=== PATIENT | female | born 1945 | race Caucasian/White ===

== ENCOUNTER 2024-04-17 17:26 | Observation (INO) | payer OTHER, MEDICAID ==
[~2024-04-17] VITALS: Ht 165.1 cm; Wt 59.4 kg
[2024-04-17 17:41] VITALS: BP_SYST 116; PULSE 69; RESP 19; TEMP 98.7; O2SAT 100
[2024-04-17 18:06] LABS: BASOPHILS # (AUTO) 0.1 K/uL (0.0-0.2); BASOPHILS % (AUTO) 0.7 % (0.0-2.0); EOSINOPHILS # (AUTO) 0.6 K/uL (0.0-0.4); EOSINOPHILS % (AUTO) 9.2 % (0.0-4.0); HEMATOCRIT 26.6 % (36-48); HEMOGLOBIN 8.9 g/dL (12.0-16.0); LYMPHOCYTES # (AUTO) 1.3 K/uL (1.0-5.5); LYMPHOCYTES % (AUTO) 19.1 % (20.5-51.5); MEAN CORPUSCULAR HEMOGLOBIN 34 pg (27-31); MEAN CORPUSCULAR HGB CONC 33 % (32-36); MEAN CORPUSCULAR VOLUME 102 fL (79.0-98.0); MONOCYTES # (AUTO) 0.9 K/uL (0.0-1.0); MONOCYTES % (AUTO) 13.5 % (1.7-9.3); NEUTROPHILS # (AUTO) 3.9 K/uL (1.8-7.7); NEUTROPHILS % (AUTO) 57.5 % (40.0-70.0); PLATELET COUNT (AUTO) 278 K/uL (130-430); WHITE BLOOD COUNT (AUTO) 6.8 K/uL (4.8-10.8)
[2024-04-17 18:21] LABS: ANION GAP 6 (5-15); CALCIUM 9.6 mg/dL (8.4-11.0); CARBON DIOXIDE 33 mmol/L (23-29); CHLORIDE 101 mmol/L (98-107); CREATININE 3.31 mg/dL (0.55-1.30); GLUCOSE 104 mg/dL (74-106); POTASSIUM 4.1 mmol/L (3.5-5.1); SODIUM SERUM 140 mmol/L (136-145); UREA NITROGEN, BLOOD 53 mg/dL (8-21)
[2024-04-17] MEDS ORDERED: CLON0.1T GT (19:41)
[2024-04-17] MEDS ORDERED: TYLL650 GT (19:41)
[2024-04-17] MEDS ORDERED: CLOP75TA32 GT (19:41)
[2024-04-17] MEDS ORDERED: AMIO200T66 GT (19:41)
[2024-04-17] MEDS ORDERED: CYCL10TA24 GT (19:41)
[2024-04-17] MEDS ORDERED: AMLO5TAB92 GT (19:41)
[2024-04-17] MEDS ORDERED: CHLO473M5 PO (19:41)
[2024-04-17] MEDS ORDERED: ESCI10TA GT (19:42)
[2024-04-17] MEDS ORDERED: DRON5CAP26 GT (19:42)
[2024-04-17] MEDS ORDERED: FER300L GT (19:42)
[2024-04-17] MEDS ORDERED: DARB60VI INJ (19:42)
[2024-04-17] MEDS ORDERED: FAMO20TA8 GT (19:42)
[2024-04-17] MEDS ORDERED: COLL100 GT (19:42)
[2024-04-17] MEDS ORDERED: IPRA3AMP9 INH ×2 (19:42)
[2024-04-17] MEDS ORDERED: MELA5TAB21 GT (20:51)
[2024-04-17] MEDS ORDERED: SER25 GT (20:51)
[2024-04-17] MEDS ORDERED: NITR0.4T47 SL (20:51)
[2024-04-17] MEDS ORDERED: SEVE800T8 GT (20:51)
[2024-04-17 22:00] VITALS: BP_SYST 144; PULSE 71; RESP 18; O2SAT 100
[2024-04-17] MEDS: LORazepam 2 MG/ML VIAL IVP PRN (23:41)
[2024-04-18] VITALS (8 sets, daily range): BP systolic 110–139; PULSE 69–90; RESP 18–19; TEMP 96.2–97.9; O2SAT 98–100
[2024-04-18] MEDS: LORazepam 2 MG/ML VIAL ONE (01:09)
[2024-04-18] MEDS: HEPARIN SODIUM,PORCINE 5,000 UNITS/ML VIAL IVP ONE ×2 (01:11)
[2024-04-18] MEDS ORDERED: NALOXONE HCL 0.4 MG/ML AMP (NARCAN) IVP PRN (09:30)
[2024-04-18] MEDS ORDERED: HYDROcodone/ACETAMIN 5-325 MG TAB (NORCO/ VICODIN) PO PRN (09:30)
[2024-04-18] MEDS ORDERED: ONDANSETRON HCL 4 MG/2 ML VIAL IVP PRN (09:30)
[2024-04-18] MEDS ORDERED: HYDROcodone/ACETAMIN 10-325 MG TAB PO PRN (09:30)
[2024-04-18] MEDS ORDERED: MORPHINE 2 MG/ML INJ. SYRINGE IVP PRN (09:30)
[2024-04-18] MEDS ORDERED: cloNIDine HCL 0.1 MG TABLET GT PRN (09:30)
[2024-04-18] MEDS ORDERED: CYCLOBENZAPRINE HCL 10 MG TABLET (FLEXERIL) GT PRN (09:30)
[2024-04-18] MEDS ORDERED: ACETAMINOPHEN 325 MG TABLET PO PRN ×2 (09:30)
[2024-04-18] MEDS ORDERED: CLOPIDOGREL BISULFATE 75 MG TABLET GT ONE (09:45)
[2024-04-18] MEDS: DOCUSATE SODIUM 100 MG/10 ML UDC GT ONE (10:13)
[2024-04-18] MEDS: SEVELAMER CARBONATE 800 MG TABLET GT ONE (10:14)
[2024-04-18] MEDS: AMIODARONE HCL 200 MG TABLET GT ONE (10:14)
[2024-04-18] MEDS: CITALOPRAM HYDROBROMIDE 20 MG TABLET PO ONE (10:14)
[2024-04-18] MEDS: ALBUTEROL SULFATE 0.083% 2.5 MG/3 ML VIAL.NEB INH SCH (11:24)
[2024-04-18] MEDS ORDERED: NOR10 PO (11:52)
[2024-04-19] MEDS ORDERED: AMIODARONE HCL 200 MG TABLET GT SCH (09:00)
[2024-04-19] MEDS ORDERED: CLOPIDOGREL BISULFATE 75 MG TABLET GT SCH (09:00)
[2024-04-19] MEDS ORDERED: SEVELAMER CARBONATE 800 MG TABLET GT SCH (09:00)
[2024-04-19] MEDS ORDERED: DOCUSATE SODIUM 100 MG/10 ML UDC GT SCH (09:00)
[2024-04-19] MEDS ORDERED: CITALOPRAM HYDROBROMIDE 20 MG TABLET PO SCH (09:00)
== END 2024-04-18 13:40 ==
LOC: SED 17:26 → INTOOBSV 19:22 → SMU 19:22
PROVIDERS: ADMIT Specialist; ATTEND Specialist
DX: E87.70 Fluid overload, unspecified (principal); J96.21 Acute and chronic respiratory failure with hypoxia; I12.0 Hypertensive chronic kidney disease with stage 5 chronic kidney disease or end stage renal disease; E11.22 Type 2 diabetes mellitus with diabetic chronic kidney disease; N18.6 End stage renal disease; D63.1 Anemia in chronic kidney disease; R13.10 Dysphagia, unspecified; K21.9 Gastro-esophageal reflux disease without esophagitis; I48.91 Unspecified atrial fibrillation; J44.9 Chronic obstructive pulmonary disease, unspecified; Z99.2 Dependence on renal dialysis; Z79.899 Other long term (current) drug therapy
CPT/HCPCS: 90935; 96374; 80048; 83880; 85025; 84484; 36415; 93005; 71045; 99285; 96375; 94070; 94760; J2060; G0378 ×2; J1644; G0257